=== PATIENT | male | born 1990 | race Two or more races ===

== ENCOUNTER 2022-11-20 05:18 | Emergency (ER) | payer OTHER, MEDICARE, MEDICAID, SELFPAY ==
[2022-11-20 05:25] VITALS: BP 117/63; PULSE 87; RESP 18; TEMP 36.6; O2SAT 99; BMI 27.2
== END 2022-11-20 07:20 | disposition left against medical advice (07) ==
LOC: HO.ED 08:20
PROVIDERS: Emergency Provider Emergency Medicine
DX: M54.6 Pain in thoracic spine (principal)
CPT/HCPCS: 99281

== ENCOUNTER 2023-06-13 08:04 | Outpatient (AMB) | payer OTHER, MEDICAID, SELFPAY ==
--- NOTE | 2023-06-13 08:10 | A.OFFVIS_ITS ---
Intake Vital Signs 06/13/23 08:11 Height 5 ft 7 in Weight 185 lb 6.54 oz BMI 29.0 BP 118/80 Blood Pressure Location Lt brachial Position Sitting Pulse 97 Pulse Source Pulse Oximeter Intake Visit Reasons: Hypogonadism-CONFIRMED Intake Note: New patient present today for Hypogonadism. Diaphragm Builder Required: No Accompanied by: Self / Same As Patient Allergies snri Allergy (Intermediate, Uncoded 11/25/22 11:25) Itching ssri Allergy (Intermediate, Uncoded 11/25/22 11:25) Itching Medication List - Last Reconciled 06/13/23 by Osmany Decker MD bupropion HCl mg PO clonidine HCl mg PO lidocaine 5% 1 patch topical DAILY testosterone topical HPI HPI Comments History of Present Illness Details 32 YO Male with PMHx infertiity clinic who is seen in consultation at the request of his PCP for Hypogonadism. First diagnosed with Hypogonadism 4 yrs ago with labs revealing boderline testosterone in [place] .Never saw endo Took 150 mg qwk cyoionate wkly and HCG for 2 yrs ago for 2 yrs . Urologist started Androgel 2 pumps Currently using [testosterone 2 packets Androgel generic ]. Last dose was this morning . Was not achieving spontaneous am erections, and unable to achieve erection when desired. Takes Ron Reports low libido befor testosterone . Had Decreased facial hair and shaving frequency improved . Denies any change in size or shape of testicles. Denies penile discharge or scrotal tenderness. Denies any history of mumps orchitis. Denies any head trauma. Does snore - not been worked up for sleep apnea Not actively trying to have children Sense of smell intact. Denies headache or visual changes, gynecomastia or galactorrhea. Denies orthostatic symptoms, weight loss. Denies change in size of hands or feet. Denies hair loss, weight gain, cold intolerance. No History of DVT or PE: Not using marijuana or pain or opoid medications PFSH Medical History (Updated 06/13/23 @ 08:34 by Osmany Decker MD) Testicular hypergonadotropic hypogonadism Surgical History (Updated 06/13/23 @ 08:17 by Rose Balderrama) H/O knee surgery Family History (Updated 06/13/23 @ 08:20 by Rose Balderrama) Mother Diabetes Father Diabetes Hypertension Arthritis Physical Exam Vital Signs: Last Vital Signs Pulse 97 06/13/23 08:11 BP 118/80 06/13/23 08:11 BMI result Body Mass Index 29.0 There is the absence of eunichoidal proportions. Neck exam reveals nl thyroid about 15 gms. Chest exam reveals absence of gynecomastia. Lungs CTA. Heart is S1 S2 Reg R/R. -M/R/G. Abdominal exam is benign. Muscle strength is 5/5 proximally. Examination of genitalia reveals nl size pthalus . Testes are of nl size and consistency. There is Surya Stage V Hair development Assessment & Plan Assessment & Plan (1) Testicular hypergonadotropic hypogonadism: Code(s): E29.1 - Testicular hypofunction Plan: This is a 32-year-old male with a reported history of hypogonadism and unclear workup previously took testosterone. The plan is to reinitiate workup for testosterone deficiency. Will check a.m. testosterone fasting in 6 wks off testosterone . Further workup based on the above. 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 Lastly, advised patient to complete sleep study to rule out sleep apnea in anticipation of re-initiation of testosterone. We talked about modalities of testosterone including intramuscular, transdermal and oral Orders: Orders Testosterone, Free/Total Today E29.1 - Testicular hypofunction Coding Level of Care Code New Pt Level 4 (20064) Diagnoses Testicular hypergonadotropic hypogonadism E29.1
[2023-06-13 08:11] VITALS: BP 118/80; PULSE 97; BMI 29.0
== END 2023-06-13 09:11 | disposition home or self-care (01) ==
PROVIDERS: PCP Internal Medicine; Visit Provider Internal Medicine Endocrinology, Diabetes & Metabolism
DX: E29.1 Testicular hypofunction (principal)
CPT/HCPCS: 99204

== ENCOUNTER → 2023-06-13 08:04 | Outpatient (BNVA) | payer OTHER, MEDICAID, SELFPAY | PROVIDERS: PCP Internal Medicine; Visit Provider Internal Medicine Endocrinology, Diabetes & Metabolism ==

== ENCOUNTER 2023-07-26 06:15 | Outpatient (REF) | payer OTHER, MEDICAID, SELFPAY ==
[2023-08-01 19:13] LABS: Testosterone, Free 52.7 pg/mL (35.0-155.0); Testosterone, Total 379 ng/dL (250-1100)
== END 2023-07-26 06:16 | disposition home or self-care (01) ==
LOC: HO.LAB 06:15
PROVIDERS: PCP Internal Medicine; Visit Provider Internal Medicine Endocrinology, Diabetes & Metabolism
DX: E29.1 Testicular hypofunction (principal)
CPT/HCPCS: 36415; 84402; 84403